=== PATIENT | female | born 1970 | race Caucasian/White ===

== ENCOUNTER 2017-04-27 16:35 | Emergency (ER) | payer MEDICAID, OTHER ==
[~2017-04-27] VITALS: Ht 182.9 cm; Wt 94.3 kg
[~2017-04-27 16:35] MED LIST: ACYC400T PO; CYCL5TAB PO; LEVO200T4 PO; LOSA100T PO; NAPR500T PO
[2017-04-27 16:37] VITALS: BP 159/98; PULSE 96; RESP 16; TEMP 98.8; O2SAT 98
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
[2017-04-27] MEDS ORDERED: BENZ100 PO (20:35)
[2017-04-27] MEDS ORDERED: NAPR500 PO (20:37)
[2017-04-27 21:07] VITALS: BP 146/88; TEMP 98.3
--- NOTE | 2017-04-27 22:19 | EKG ---
Date Performed: 04/27/2017 Time Performed: 20:06:14 PTAGE: 46 years EKG: Sinus rhythm T-WAVE ABNORMALITY, CONSIDER ANTERIOR ISCHEMIA ABNORMAL ECG PREVIOUS TRACING : 05/06/2015 02.41 Compared to previous tracing, heart rate has increased. DOCTOR: Desmond Ramos Interpretating Date/Time 04/27/2017 22:17:11
[2017-05-10] MEDS ORDERED: LEVO25TA4 PO (15:59)
[2017-05-10] MEDS ORDERED: HYDR1SOL20 PO (16:04)
== END 2017-04-27 21:08 | disposition home or self-care (01) ==
LOC: PHED 16:35 → PHEFT 21:08
DX: J00 Acute nasopharyngitis [common cold] (principal); I10 Essential (primary) hypertension; Z87.891 Personal history of nicotine dependence
CPT/HCPCS: 93005; 99283

== ENCOUNTER 2017-04-30 13:34 | Emergency (ER) | payer OTHER ==
[~2017-04-30] VITALS: Ht 167.6 cm; Wt 92.5 kg
[~2017-04-30 13:34] MED LIST changes: -ACYC400T PO; +BENZ100 PO; -CYCL5TAB PO; +NAPR500 PO; -NAPR500T PO
[2017-04-30 13:37] VITALS: BP 148/93; PULSE 99; RESP 24; TEMP 98.7; O2SAT 98
--- NOTE | 2017-04-30 14:18 | PD ---
Physical Exam Date Seen by Provider: Apr 30, 2017 Time Seen by Provider: 14:14 Narrative 46 yr old female had flu like symptoms, went to [facility] in [place] and was given some Tessalon perles and something for body aches. SHe is not getting better. She admits to fever and chills. SHe admits to coughing that is very dry but persistent. She admits to chest pain only when coughing. She also has pressure headache that "reaches her eyes." She also has body aches 04/25. She had sick family members. She is awaiting bed placement. Data Data Last Documented VS Vital Signs Date Time Temp Pulse Resp B/P Pulse Ox O2 Delivery O2 Flow Rate FiO2 04/30/17 13:37 98.7 99 24 148/93 98 Room Air [facility] Medical Record Reviewed: Yes Supervised Visit with LINDA: Laura Lang Apr 30, 2017 14:18
--- NOTE | 2017-04-30 14:57 | RADRPT ---
EXAM DATE/TIME: 04/30/2017 14:35 [facility] COMPARISON: CHEST SINGLE AP, May 05, 2015, 20:04. INDICATIONS : Cough and congestion. MEDICAL HISTORY : Hypertension. SURGICAL HISTORY : None. ENCOUNTER: Initial ACUITY: 3 days PAIN SCORE: 0/10 LOCATION: Bilateral chest FINDINGS: The lungs are clear without infiltrate, nodule, or mass. There is no appreciable pleural effusion fo r technique. Heart and mediastinum are unremarkable. CONCLUSION: No acute cardiopulmonary disease. Blake Scott MD on April 30, 2017 at 14:55 Board Certified Radiologist. This report was verified electronically.
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
[2017-04-30] MEDS ORDERED: VENTAER INH (15:27)
[2017-04-30] MEDS ORDERED: PRED50 PO (15:27)
[2017-04-30] MEDS ORDERED: AUGM875T3 PO (15:27)
[2017-05-10] MEDS ORDERED: LEVO25TA4 PO (15:59)
[2017-05-10] MEDS ORDERED: HYDR1SOL20 PO (16:04)
== END 2017-04-30 16:20 | disposition home or self-care (01) ==
LOC: NEPK 13:34
DX: J01.90 Acute sinusitis, unspecified (principal); J20.9 Acute bronchitis, unspecified
CPT/HCPCS: 71020; 99284

== ENCOUNTER 2017-05-15 12:39 | Emergency (ER) | payer OTHER ==
[~2017-05-15] VITALS: Ht 167.6 cm; Wt 86.5 kg
[~2017-05-15 12:39] MED LIST changes: +AUGM875T3 PO; +HYDR1SOL20 PO; +LEVO25TA4 PO; +PRED50 PO; +VENTAER INH
[2017-05-15 12:42] VITALS: BP 123/80; PULSE 95; RESP 18; TEMP 98.1; O2SAT 96
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
[2017-05-15] MEDS ORDERED: IBUPROFEN 800 MG TAB PO ONE (13:00)
[2017-05-15] MEDS ORDERED: IBUP-232 PO (13:05)
[2017-05-15] MEDS ORDERED: ROBA750T PO (13:05)
[2017-05-15 13:13] LABS: BLOOD, URINE LARGE (NEG); GLUCOSE,URINE NEG (NEG); KETONE, URINE NEG (NEG); NITRITE,URINE NEG (NEG)
[2017-05-15 13:18] LABS: METHOD OF COLLECTION CLEAN CATCH; URINE COLOR YELLOW (YELLW/STRAW); WBC, URINE 0-2 /hpf (0-5)
[2017-05-15 13:19] LABS: BACTERIA, URINE OCC /hpf; COMMENT (UR) CULT NOT INDICATED; CULTURE IF INDICATED CULT NOT INDICATED
--- NOTE | 2017-05-15 14:17 | RADRPT ---
EXAM DATE/TIME: 05/15/2017 13:51 CORRE[place] Corrected on: May 15, 2017; [facility] COMPARISON: CT ABDOMEN & PELVIS W/O CONTRAST, May 04, 2014, 13:00. CT ABDOMEN & PELVIS W/O CONTRAST, December 31, 2014, 23:00. INDICATIONS : Left lower flank pain radiating down left leg. ORAL CONTRAST: No oral contrast ingested. RADIATION DOSE: 23.55 CTDIvol (mGy) MEDICAL HISTORY : Hypertension. SURGICAL HISTORY : Tubal ligation. section. ENCOUNTER: Initial ACUITY: 1 day PAIN SCALE: 5/10 LOCATION: Left flank TECHNIQUE: Volumetric scanning of the abdomen and pelvis was performed. Using automated exposure control and ad justment of the mA and/or kV according to patient size, radiation dose was kept as low as reasonably achievable to obtain optimal diagnostic quality images. DICOM format image data is available electro nically for review and comparison. FINDINGS: LOWER LUNGS: The visualized lower lungs are clear. LIVER: The liver is enlarged and demonstrates diffuse fatty infiltration. No focal hepatic mass is noted. No biliary ductal dilatation is noted. The gallbladder is unremarkable. SPLEEN: Normal size without lesion. PANCREAS: Within normal limits. KIDNEYS: Normal in size and shape. There is no mass or hydronephrosis. Scattered tiny calcified nonobstructin g bilateral renal calculi are noted. The largest calculus is noted on the left and measures 3 mm. The re is a tiny stable 11 mm upper pole left renal cyst. ADRENAL GLANDS: Within normal limits. VASCULAR: There is no aortic aneurysm. BOWEL/MESENTERY: The stomach, small bowel, and colon demonstrate no acute abnormality. There is no free intraperitone al air or fluid. There is a normal retrocecal appendix. ABDOMINAL WALL: Within normal limits. RETROPERITONEUM: There is no lymphadenopathy. BLADDER: No wall thickening or mass. REPRODUCTIVE: Within normal limits. INGUINAL: There is no lymphadenopathy or hernia. MUSCULOSKELETAL: Within normal limits for patient age. CONCLUSION: 1. Multiple calcified nonobstructing bilateral renal calculi. 2. Enlarged fatty liver. 3. No acute obstructive uropathy. 4. Stable 11 mm left upper pole renal cyst. Jeremie Crystal MD on May 15, 2017 at 14:10 Board Certified Radiologist. This report was verified electronically. Jeremie Crystal MD on May 15, 2017 at 14:24 Board Certified Radiologist. This report was verified electronically.
== END 2017-05-15 14:29 | disposition home or self-care (01) ==
LOC: PHEFT 12:39
DX: M54.42 Lumbago with sciatica, left side (principal); I10 Essential (primary) hypertension; Z87.891 Personal history of nicotine dependence
CPT/HCPCS: 74176; 81001; 99285

== ENCOUNTER 2017-07-30 12:33 | Emergency (ER) | payer OTHER ==
[~2017-07-30 12:33] MED LIST changes: -AUGM875T3 PO; -BENZ100 PO; -HYDR1SOL20 PO; +IBUP-232 PO; -LEVO25TA4 PO; -NAPR500 PO; -PRED50 PO; +ROBA750T PO; -VENTAER INH
[2017-07-30 12:37] VITALS: BP 130/75; PULSE 84; RESP 18; TEMP 98.2; O2SAT 98
[2017-07-30] MEDS ORDERED: KETOROLAC TROMETHAMINE 60 MG/2 ML (IM) VIAL IM ONE (13:15)
[2017-07-30] MEDS ORDERED: ORPHENADRINE INJ 60 MG/2 ML AMP IM ONE (13:15)
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
[2017-07-30] MEDS ORDERED: CYCL5TAB PO (13:28)
[2017-08-09] MEDS ORDERED: MELO-1 PO (12:41)
[2017-08-09] MEDS ORDERED: CICL8SOL4 TOPICAL (12:45)
== END 2017-07-30 13:39 | disposition home or self-care (01) ==
LOC: PHEFT 12:33
DX: I10 Essential (primary) hypertension (principal); M54.31 Sciatica, right side
CPT/HCPCS: 96372; 99284; J1885; J2360

== ENCOUNTER 2017-08-03 17:51 | Emergency (ER) | payer OTHER ==
[~2017-08-03] VITALS: Ht 167.6 cm; Wt 96.2 kg
[~2017-08-03 17:51] MED LIST changes: +CYCL5TAB PO; -IBUP-232 PO; -ROBA750T PO
[2017-08-03 18:29] VITALS: BP 128/73; PULSE 81; RESP 16; TEMP 99.1; O2SAT 98
--- NOTE | 2017-08-03 22:57 | RADRPT ---
EXAM DATE/TIME: 08/03/2017 22:35 [facility] COMPARISON: No previous studies available for comparison. INDICATIONS : Lower back pain. No injury. RADIATION DOSE: 39.58 CTDIvol (mGy) MEDICAL HISTORY : Hypertension. SURGICAL HISTORY : None. ENCOUNTER: Subsequent ACUITY: 1 day PAIN SCALE: 6/10 LOCATION: spine TECHNIQUE: Volumetric scanning of the lumbar spine was performed. Multiplanar reconstructions in the sagittal, coronal and oblique axial planes were performed. Using automated exposure control and adjustment of the mA and/or kV according to patient size, radiation dose was kept as low as reasonably achievable t o obtain optimal diagnostic quality images. DICOM format image data is available electronically for review and comparison. FINDINGS: VERTEBRAE: Normal vertebral body height. ALIGNMENT: No evidence of subluxation. Vascular. Calcification in the aorta and iliac arteries consistent premature atherosclerosis. T12-L1: The thecal sac has a normal diameter. No evidence of disc bulge or protrusion. The neural foramina are patent bilaterally. L1-L2: The thecal sac has a normal diameter. No evidence of disc bulge or protrusion. The neural foramina are patent bilaterally. L2-L3: The thecal sac has a normal diameter. No evidence of disc bulge or protrusion. The neural foramina are patent bilaterally. L3-L4: The thecal sac has a normal diameter. No evidence of disc bulge or protrusion. The neural foramina are patent bilaterally. L4-L5: The thecal sac has a normal diameter. No evidence of disc bulge or protrusion. The neural foramina are patent bilaterally. L5-S1: The thecal sac has a normal diameter. No evidence of disc bulge or protrusion. The neural foramina are patent bilaterally. CONCLUSION: Normal negative examination lumbar spine. Premature atherosclerotic vascular calcifications i n aorta and iliac vessels. Rui Noyola MD on August 03, 2017 at 22:52 Board Certified Radiologist. This report was verified electronically.
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
[2017-08-03] MEDS ORDERED: KETOROLAC TROMETHAMINE 60 MG/2 ML (IM) VIAL IM ONE (23:15)
[2017-08-03 23:51] VITALS: BP 124/76
[2017-08-09] MEDS ORDERED: MELO-1 PO (12:41)
[2017-08-09] MEDS ORDERED: CICL8SOL4 TOPICAL (12:45)
== END 2017-08-03 23:53 | disposition home or self-care (01) ==
LOC: PHED 17:51 → PHEFT 23:53
DX: M54.41 Lumbago with sciatica, right side (principal)
CPT/HCPCS: 72131; 96372; 99285; J1885

== ENCOUNTER 2017-08-07 09:18 | Emergency (ER) | payer OTHER ==
[~2017-08-07] VITALS: Ht 167.6 cm; Wt 96.0 kg
[~2017-08-07 09:18] MED LIST changes: -CYCL5TAB PO
[2017-08-07 09:20] VITALS: BP 150/88; PULSE 63; RESP 18; TEMP 98.1; O2SAT 98
--- NOTE | 2017-08-07 09:44 | PD ---
HPI Chief Complaint: Back/ Neck Pain or Injury Time Seen by Provider: 09:26 Travel History International Travel<30 days: No Contact w/Intl Traveler<30days: No Traveled to known affect area: No History of Present Illness HPI 46-year-old female presents to the emergency room for evaluation of chronic right-sided low back pain. Patient has been seen in the emergency room multiple times for the same complaint. She was last seen 4 days ago and had a CT of her lumbar spine that was negative for any abnormality. Of note, patient had an MRI of her lumbar spine one year ago which only showed mild scoliosis. Patient states her pain was exacerbated yesterday because she had stand on her feet at work all day. Pain is localized to the right SI joint without radiation. Pain is worsened with any range of motion of the back. Not worse with range of motion of the hips. She takes Tylenol and Motrin without relief in symptoms. Denies saddle anesthesia, loss of bowel or bladder control , or lower x-ray paresthesias. Denies IV drug use, fever, chills, nausea, vomiting, or weight loss. Denies chronic medical conditions other than hypertension. History Past Medical Histgory Menopausal: Yes Hx Chemotherapy: No Social History Alcohol Use: No Tobacco Use: No (FORMER) Allergies-Medications (Allergen,Severity, Reaction): Coded Allergies: No Known Allergies (Unverified , 08/07/17) Reported Meds & Prescriptions Reported Meds & Active Scripts Active Losartan (Losartan Potassium) 100 Mg Tab 100 Mg PO DAILY Levothyroxine (Levothyroxine Sodium) 200 Mcg Tab 200 Mcg PO DAILY Review of Systems Except as stated in HPI: all other systems reviewed are Neg Physical Exam Narrative GENERAL: Well-nourished, well-developed female in no acute distress. Afebrile. Ambulatory without antalgic gait. SKIN: Focused skin assessment warm/dry. No erythema or ecchymosis. HEAD: Normocephalic. EYES: No scleral icterus. No injection or drainage. NECK: Supple, trachea midline. No JVD or lymphadenopathy. CARDIOVASCULAR: Regular rate and rhythm without murmurs, gallops, or rubs. RESPIRATORY: Breath sounds equal bilaterally. No accessory muscle use. BACK: No midline tenderness. No obvious deformity. No CVA tenderness. Mild tenderness to palpation of the right SI joint. 1+ patellar and Achilles reflexes are equal bilaterally. Data Data Last Documented VS Vital Signs Date Time Temp Pulse Resp B/P (MAP) Pulse Ox O2 Delivery O2 Flow Rate FiO2 08/07/17 09:20 98.1 63 18 150/88 (108) 98 Room Air MDM Medical Screen Exam Complete: Yes Emergency Medical Condition: No Differential Diagnosis Chronic low back pain Narrative Course 46-year-old female presents to the emergency room for evaluation of chronic right-sided low back pain. Patient has been seen in the emergency room multiple times for the same complaint. She was last seen 4 days ago and had a CT of her lumbar spine that was negative for any abnormality. Of note, patient had an MRI of her lumbar spine one year ago which only showed mild scoliosis. She is ambulatory. No focal neurological deficits. No midline tenderness. No red flag symptoms. Patient was informed that she needs to follow up with her primary care physician for management of her chronic back pain. Told to return for concerning signs or symptoms. She understands and agrees to plan. There are no urgent or emergent medical conditions at this time. A medical screening exam was performed: At the time of evaluation the presenting medical condition was determined not to be of an emergent nature. The patient was given the option of receiving additional care, such as prescription for muscle relaxers, but declined. Patient was given options for additional community resources from which to obtain care. The Patient Has Been advised to seek medical attention for their presenting complaint. The patient has been advised to return to the ER at any time if an emergent condition develops. Primary Impression: Encounter for medical screening examination Disposition: 01 DISCHARGE HOME Condition: Stable Lisha Asif Aug 07, 2017 09:44
[2017-08-09] MEDS ORDERED: MELO-1 PO (12:41)
[2017-08-09] MEDS ORDERED: CICL8SOL4 TOPICAL (12:45)
== END 2017-08-07 10:17 | disposition left against medical advice (07) ==
LOC: NEPK 09:18
DX: Z00.00 Encounter for general adult medical examination without abnormal findings (principal); M54.5 Low back pain
CPT/HCPCS: 99281

== ENCOUNTER 2017-10-27 14:22 | Emergency (ER) | payer OTHER ==
[~2017-10-27] VITALS: Ht 167.6 cm; Wt 100.0 kg
[~2017-10-27 14:22] MED LIST changes: +CICL8SOL4 TOPICAL; +MELO15TA20 PO
[2017-10-27 15:01] VITALS: BP 143/87; PULSE 111; RESP 16; TEMP 98.9; O2SAT 98
[2017-10-27 16:17] LABS: BILIRUBIN, URINE NEG (NEG); BLOOD, URINE LARGE (NEG); GLUCOSE,URINE NEG (NEG); KETONE, URINE NEG (NEG); NITRITE,URINE NEG (NEG); URINE LEUKOCYTE ESTERASE NEG (NEG)
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
[2017-10-27] MEDS ORDERED: KETOROLAC TROMETHAMINE 60 MG/2 ML (IM) VIAL IM ONE (16:45)
[2017-10-27 16:51] LABS: RBC, URINE 0-3 /hpf (0-3); SQUAMOUS EPITHELIAL CELL URINE 0-5 /hpf (0-5); URINE COLOR YELLOW (YELLW/STRAW)
--- NOTE | 2017-10-27 18:12 | RADRPT ---
EXAM DATE/TIME: 10/27/2017 17:45 [facility] COMPARISON: CT ABDOMEN & PELVIS W/O CONTRAST, May 15, 2017, 13:51. INDICATIONS : Right flank pain. ORAL CONTRAST: No oral contrast ingested. RADIATION DOSE: 24.83 CTDIvol (mGy) MEDICAL HISTORY : Renal calculi. Hypertension. SURGICAL HISTORY : Tubal ligation. section. ENCOUNTER: Initial ACUITY: 3 days PAIN SCALE: 7/10 LOCATION: Right flank TECHNIQUE: Volumetric scanning of the abdomen and pelvis was performed. Using automated exposure control and ad justment of the mA and/or kV according to patient size, radiation dose was kept as low as reasonably achievable to obtain optimal diagnostic quality images. DICOM format image data is available electro nically for review and comparison. FINDINGS: There is a 2 mm nonobstructing stone of the right mid zone, 3 mm nonobstructing stone of the right lo wer pole, 3 mm nonobstructing stone of the left mid zone and 2 mm nonobstructing stone of the left lo wer pole. There is increased density of the medullary pyramids of both kidneys typical of calcinosis. No ureteral calculus is demonstrated. There is no hydronephrosis or hydroureter. Liver is at least 20 cm craniocaudal. Heterogeneous fatty infiltration again noted, similar to the pr ior study. Spleen size upper limits of normal. No obstruction or acute inflammatory changes are seen of the gastrointestinal tract. The appendix is well-visualized, normal. No free or loculated fluid. No lymphadenopathy. Visualized lung bases are clear. No acute bony abnorm ality demonstrated. CONCLUSION: 1. A few scattered tiny nonobstructing stones in both kidneys. No ureteral calculus or hydronephrosis /hydroureter. 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 2. Enlarged and fatty infiltrated liver again noted. Guille Morales MD on October 27, 2017 at 18:07 Board Certified Radiologist. This report was verified electronically.
[2017-10-27] MEDS ORDERED: AMOX875T PO (18:19)
[2017-10-27 18:41] VITALS: BP 139/80
[2017-10-28] MEDS ORDERED: MELO15TA20 PO (20:07)
[2017-11-07] MEDS ORDERED: CLOT1CRE6 TOPICAL (14:21)
[2017-11-07] MEDS ORDERED: [UNRECOGNIZED DRUG - CODE] (14:21)
[2017-11-07] MEDS ORDERED: LEVO200T4 PO (14:21)
[2017-11-07] MEDS ORDERED: PERC5TAB12 PO (14:23)
[2017-11-07] MEDS ORDERED: TAMS5CAP PO (14:28)
== END 2017-10-27 18:42 | disposition home or self-care (01) ==
LOC: PHEFT 14:22
DX: J02.0 Streptococcal pharyngitis (principal); N25.89 Other disorders resulting from impaired renal tubular function; N20.0 Calculus of kidney; E07.9 Disorder of thyroid, unspecified; I10 Essential (primary) hypertension; Z87.891 Personal history of nicotine dependence
CPT/HCPCS: 74176; 81001; 87804; 87880; 96372; 99285; J1885

== ENCOUNTER 2017-11-15 17:27 | Emergency (ER) | payer OTHER ==
[~2017-11-15] VITALS: Ht 167.6 cm; Wt 100.0 kg
[~2017-11-15 17:27] MED LIST changes: +AMOX875T PO; -CICL8SOL4 TOPICAL; +CLOT1CRE6 TOPICAL; +PERC5TAB12 PO; +TAMS5CAP PO; +[UNRECOGNIZED DRUG - CODE]
[2017-11-15 17:40] VITALS: BP 153/90; PULSE 91; RESP 16; TEMP 98.2; O2SAT 98
[2017-11-15 17:52] LABS: BILIRUBIN, URINE NEG (NEG); BLOOD, URINE LARGE (NEG); GLUCOSE,URINE NEG (NEG); KETONE, URINE NEG (NEG); NITRITE,URINE POS (NEG); PH, URINE 6.5 (5.0-8.5); URINE LEUKOCYTE ESTERASE MOD (NEG)
[2017-11-15 18:06] LABS: URINE COLOR YELLOW (YELLW/STRAW); WBC, URINE INNUM /hpf (0-5)
[2017-11-15 18:07] LABS: BACTERIA, URINE MOD /hpf
[2017-11-15] MEDS ORDERED: TRAM50TA PO (18:55)
[2017-11-15] MEDS ORDERED: CIPR-9 PO (18:55)
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
== END 2017-11-15 19:17 | disposition home or self-care (01) ==
LOC: PHED 17:27 → PHEFT 19:17
DX: N12 Tubulo-interstitial nephritis, not specified as acute or chronic (principal); B96.20 Unspecified Escherichia coli [E. coli] as the cause of diseases classified elsewhere; I10 Essential (primary) hypertension; Z87.442 Personal history of urinary calculi
CPT/HCPCS: 81001; 87077; 87086; 87186; 99284

== ENCOUNTER 2017-11-17 16:39 | Inpatient (IN) | payer OTHER ==
[~2017-11-17] VITALS: Ht 167.6 cm; Wt 102.5 kg
[2017-11-17] MEDS: SODIUM CHLOR 0.9% 1000 ML INJ 1,000 ML IV SCH
[~2017-11-17 16:39] MED LIST changes: -AMOX875T PO; +CIPR-9 PO; -CLOT1CRE6 TOPICAL; -MELO15TA20 PO; -PERC5TAB12 PO; -TAMS5CAP PO; +TRAM50TA PO; -[UNRECOGNIZED DRUG - CODE]
[2017-11-17 16:43] VITALS: BP 139/75; PULSE 105; RESP 18; TEMP 100.4; O2SAT 95
--- NOTE | 2017-11-17 17:42 | RADRPT ---
EXAM DATE/TIME: 11/17/2017 17:24 [facility] COMPARISON: CHEST PA & LAT, April 30, 2017, 14:35. INDICATIONS : Chest pain. MEDICAL HISTORY : None. SURGICAL HISTORY : None. ENCOUNTER: Initial ACUITY: 4 - 6 days PAIN SCORE: 9/10 LOCATION: Bilateral chest FINDINGS: PA and lateral views of the chest demonstrate the lungs to be symmetrically aerated without evidence of mass, infiltrate or effusion. The cardiomediastinal contours are unremarkable. Osseous structure s are intact. CONCLUSION: No acute disease. Robb Zambrano Jr., MD on November 17, 2017 at 17:39 Board Certified Radiologist. This report was verified electronically.
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
[2017-11-17 18:23] VITALS: BP 122/71; PULSE 110; RESP 17; TEMP 99.1; O2SAT 96
[2017-11-17 18:26] LABS: AUTOMATED NEUTROPHIL # 13.2 TH/MM3 (1.8-7.7); BASOPHIL % 0.2 % (0.0-2.0); EOSINOPHIL % 0.1 % (0.0-4.0); HEMATOCRIT 37.8 % (35.0-46.0); HEMOGLOBIN 12.6 GM/DL (11.6-15.3); LYMPH % 6.6 % (9.0-44.0); MEAN CELL VOLUME 90.5 FL (80.0-100.0); MEAN CORPUSCULAR HEMOGLOBIN 30.2 PG (27.0-34.0); MEAN CORPUSCULAR HGB CONC 33.4 % (32.0-36.0); MEAN PLATELET VOLUME 10.9 FL (7.0-11.0); MONOCYTE # 0.6 TH/MM3 (0-0.9); NEUT % 89.1 % (16.0-70.0); PLATELET COUNT 179 TH/MM3 (150-450); RED BLOOD COUNT 4.17 MIL/MM3 (4.00-5.30); WHITE BLOOD COUNT 14.8 TH/MM3 (4.0-11.0)
--- NOTE | 2017-11-17 18:36 | RADRPT ---
EXAM DATE/TIME: 11/17/2017 18:07 [facility] COMPARISON: CT ABDOMEN & PELVIS W/O CONTRAST, October 27, 2017, 17:45. INDICATIONS : Right lower quadrant pain, burning with urination. ORAL CONTRAST: No oral contrast ingested. RADIATION DOSE: 13.88 CTDIvol (mGy) MEDICAL HISTORY : Renal calculi. Hypertension. SURGICAL HISTORY : Tubal ligation. section. ENCOUNTER: Initial ACUITY: 1 day PAIN SCALE: 5/10 LOCATION: Right lower quadrant TECHNIQUE: Volumetric scanning of the abdomen and pelvis was performed. Using automated exposure control and ad justment of the mA and/or kV according to patient size, radiation dose was kept as low as reasonably achievable to obtain optimal diagnostic quality images. DICOM format image data is available electro nically for review and comparison. FINDINGS: Perinephric streakiness is noted surrounding the right kidney. There is mild ureteral pelvocaliectasi s on the right. No definite calcified obstructing calculus is noted within the right distal ureter bu t the findings suggest obstructive uropathy which may be related to recently passed calculus. Clinica l correlation recommended. Tiny calcified nonobstructing bilateral renal calculi are noted and measur e less than 5 mm each. The liver is enlarged and demonstrates diffuse fatty infiltration. The appendi x is normal. No bowel obstruction is noted. Minimal atelectasis is noted within the right posterior l constantine base. CONCLUSION: 1. Perinephric streakiness and mild ureteropelvicatelectasis on the right suggestive of obstructive u ropathy which may be related to recently passed calculus. Clinical correlation is recommended. 2. Multiple calcified nonobstructing bilateral renal calculi. 3. Enlarged fatty liver. 4. Minimal right posterior basilar atelectasis. Jeremie Crystal MD on November 17, 2017 at 18:28 Board Certified Radiologist. This report was verified electronically.
[2017-11-17 19:10] LABS: BICARBONATE 24.2 MEQ/L (21.0-32.0); BLOOD UREA NITROGEN 21 MG/DL (7-18); CALCIUM 8.8 MG/DL (8.5-10.1); CHLORIDE 97 MEQ/L (98-107); CREATININE 1.54 MG/DL (0.50-1.00); GLOMERULAR FILTRATION RATE 36 ML/MIN (>89); GLUCOSE,RANDOM 252 MG/DL (74-106); SODIUM (NA) 128 MEQ/L (136-145); TROPONIN I LESS THAN 0.02 NG/ML (0.02-0.05)
[2017-11-17 19:24] LABS: ALBUMIN 2.9 GM/DL (3.4-5.0); ALT (GPT) 72 U/L (10-53); AST (GOT) 42 U/L (15-37); DIRECT BILIRUBIN ADULT 0.3 MG/DL (0.0-0.2)
[2017-11-17 19:25] LABS: ALKALINE PHOSPHATASE 105 U/L (45-117); INDIRECT BILIRUBIN 0.9 MG/DL (0.0-0.8); TOTAL BILIRUBIN ADULT 1.2 MG/DL (0.2-1.0); TOTAL PROTEIN 8.7 GM/DL (6.4-8.2)
[2017-11-17 20:01] LABS: AMORPHOUS SEDIMENT, URINE RARE; BACTERIA, URINE OCC /hpf; BILIRUBIN, URINE NEG (NEG); BLOOD, URINE LARGE (NEG); GLUCOSE,URINE NEG (NEG); KETONE, URINE NEG (NEG); MUCUS URINE FEW /lpf (OCC); NITRITE,URINE NEG (NEG); PH, URINE 7.5 (5.0-8.5); SQUAMOUS EPITHELIAL CELL URINE 4 /hpf (0-5); URINE COLOR YELLOW (YELLW/STRAW); URINE LEUKOCYTE ESTERASE LARGE (NEG)
[2017-11-17] MEDS ORDERED: KETOROLAC TROMETHAMINE 30 MG/ML (IVP) VIAL IV PUSH ONE (20:15)
[2017-11-17] MEDS ORDERED: ONDANSETRON HCL 4 MG/2 ML VIAL IV PUSH ONE (20:15)
[2017-11-17] MEDS ORDERED: cefTRIAXone INJ 1,000 MG in SODIUM CHLORIDE 0.9% INJ 100 ML IV ONE (20:15)
[2017-11-17] MEDS ORDERED: SODIUM CHLOR 0.9% 1000 ML INJ 1,000 ML IV ONE (20:15)
--- NOTE | 2017-11-17 20:31 | PD ---
Physical Exam Narrative Patient signed out to me by Dr. Fall. Please see his documentation for complete details. Briefly, patient is a 47 year old female who complains of flank pain radiating into her pelvic area. She also has started to have some chest pain. She was seen here a few days ago and diagnosed with pyelonephritis and discharged on cipro. She reports taking this medication with no improvement. Exam shows CVA tenderness. Data Data Last Documented VS Vital Signs Date Time Temp Pulse Resp B/P (MAP) Pulse Ox O2 Delivery O2 Flow Rate FiO2 11/17/17 18:23 99.1 110 17 122/71 (88) 96 Room Air Orders Orders Electrocardiogram (11/17/17 17:01) Complete Blood Count With Diff (11/17/17 17:01) Basic Metabolic Panel (Bmp) (11/17/17 17:01) Ckmb (Isoenzyme) Profile (11/17/17 17:01) Troponin I (11/17/17 17:01) Urinalysis - C+S If Indicated (11/17/17 17:01) Chest, Pa & Lat (11/17/17 17:01) Ct Abd/Pel W/O Iv Contrast (11/17/17 17:41) Hepatic Functional Panel (11/17/17 17:57) Lipase (11/17/17 17:57) Urine Culture (11/17/17 19:15) Ceftriaxone Inj (Rocephin Inj) (11/17/17 20:15) Sodium Chlor 0.9% 1000 Ml Inj (Ns 1000 M (11/17/17 20:15) Ketorolac Inj (Toradol Inj) (11/17/17 20:15) Ondansetron Inj (Zofran Inj) (11/17/17 20:15) Labs Laboratory Tests Test 11/17/17 17:57 11/17/17 19:15 White Blood Count 14.8 TH/MM3 Red Blood Count 4.17 MIL/MM3 Hemoglobin 12.6 GM/DL Hematocrit 37.8 % Mean Corpuscular Volume 90.5 FL Mean Corpuscular Hemoglobin 30.2 PG Mean Corpuscular Hemoglobin Concent 33.4 % Red Cell Distribution Width 15.0 % Platelet Count 179 TH/MM3 Mean Platelet Volume 10.9 FL Neutrophils (%) (Auto) 89.1 % Lymphocytes (%) (Auto) 6.6 % Monocytes (%) (Auto) 4.0 % Eosinophils (%) (Auto) 0.1 % Basophils (%) (Auto) 0.2 % Neutrophils # (Auto) 13.2 TH/MM3 Lymphocytes # (Auto) 1.0 TH/MM3 Monocytes # (Auto) 0.6 TH/MM3 Eosinophils # (Auto) 0.0 TH/MM3 Basophils # (Auto) 0.0 TH/MM3 CBC Comment DIFF FINAL Differential Comment Blood Urea Nitrogen 21 MG/DL Creatinine 1.54 MG/DL Random Glucose 252 MG/DL Total Protein 8.7 GM/DL Albumin 2.9 GM/DL Calcium Level 8.8 MG/DL Alkaline Phosphatase 105 U/L Aspartate Amino Transf (AST/SGOT) 42 U/L Alanine Aminotransferase (ALT/SGPT) 72 U/L Total Bilirubin 1.2 MG/DL Direct Bilirubin 0.3 MG/DL Sodium Level 128 MEQ/L Potassium Level 4.4 MEQ/L Chloride Level 97 MEQ/L Carbon Dioxide Level 24.2 MEQ/L Anion Gap 7 MEQ/L Estimat Glomerular Filtration Rate 36 ML/MIN Indirect Bilirubin 0.9 MG/DL Total Creatine Kinase 50 U/L Troponin I LESS THAN 0.02 NG/ML Lipase 71 U/L Urine Color YELLOW Urine Turbidity HAZY Urine pH 7.5 Urine Specific [place] 1.012 Urine Protein 100 mg/dL Urine Glucose (UA) NEG mg/dL Urine Ketones NEG mg/dL Urine Occult Blood LARGE Urine Nitrite NEG Urine Bilirubin NEG Urine Urobilinogen LESS THAN 2.0 MG/DL Urine Leukocyte Esterase LARGE Urine RBC 16 /hpf Urine WBC /hpf Urine Squamous Epithelial Cells 4 /hpf Urine Amorphous Sediment RARE Urine Bacteria OCC /hpf Urine Mucus FEW /lpf Microscopic Urinalysis Comment CULTURE INDICATED MDM Supervised Visit with LINDA: No Narrative Course CT abd/pelvis performed shows possible recent passage of a stone as well as perinephric stranding. Labs concerning for elevated WBC count. Urine culture shows urine grew E. Coli sensitive to Cipro (which she was taking ) as well as Rocephin. Given IVF, Rocephin, Toradol, Zofran. Patient to be admitted for pyelonephritis, failed out patient therapy as well as repeat cardiac enzymes with the new chest pain. Diagnosis Primary Impression: Pyelonephritis Admitting Information Admitting Physician Requests: Admit Buffy Jaramillo MD Nov 17, 2017 20:31
[2017-11-17 21:00] VITALS: BP 107/54; PULSE 100; PULSE 69; RESP 16; O2SAT 97
[2017-11-17] MEDS ORDERED: ENOXAPARIN SODIUM 40 MG/0.4 ML SYRINGE SQ SCH (22:00)
[2017-11-17] MEDS ORDERED: BISACODYL 10 MG SUPP RECTAL PRN (22:15)
[2017-11-17] MEDS ORDERED: SODIUM CHLORIDE 0.9% FLUSH 10 ML FLUSH IV FLUSH PRN (22:15)
[2017-11-17] MEDS ORDERED: MAGNESIUM HYDROXIDE SUSP 30 ML CUP PO PRN (22:15)
[2017-11-17] MEDS ORDERED: NALOXONE HCL 0.4 MG/ML AMP IV PUSH PRN (22:15)
[2017-11-17] MEDS ORDERED: DEXTROSE 50% IN WATER 50 ML VIAL(D50) IV PUSH PRN (22:30)
[2017-11-17] MEDS ORDERED: GLUCAGON 1 MG/ML VIAL OTHER PRN (22:30)
[2017-11-17] MEDS: MORPHINE SULFATE 4 MG/ML INJ IV PUSH PRN (22:40)
[2017-11-17] MEDS: ONDANSETRON HCL 4 MG/2 ML VIAL IVP PRN (22:40)
[2017-11-17 23:57] VITALS: PULSE 107
[2017-11-18] VITALS (8 sets, daily range): BP systolic 93–167; BP diastolic 52–96; PULSE 84–140; RESP 18–24; TEMP 97.9–102.7; O2SAT 93–97
--- NOTE | 2017-11-18 00:02 | HHI.HP ---
[facility] Dejan Ulloa MD Admission Diagnosis Chest pain, pyelonephritis (failed outpatient treatment) Diagnoses: Travel History International Travel<30 Days: No Contact w/Intl Traveler <30 Da: No Traveled to Known Affected Are: No History of Present Illness 47-year-old female with a past medical history significant for hypothyroidism and hypertension presents to the emergency department complaining of chest pain/ pressure that started yesterday afternoon. She describes the pain as substernal and worse with palpation. It does not radiate. The patient also has severe 10/10 right flank pain that radiates to the right pelvis. She was seen in the emergency department on 11/15/17 diagnosed with a urinary tract infection, given Cipro and Toradol. Vital signs: Temperature 100.4, pulse 105, respirations 18, BP 139/75, pulse ox 95% on room air Review of Systems Except as stated in HPI: all other systems reviewed are Neg Past Family Social History Past Medical History Hypothyroidism Hypertension Past Surgical History Reported Medications Reported Meds & Active Scripts Active Levothyroxine (Levothyroxine Sodium) 200 Mcg Tab 200 Mcg PO DAILY Losartan (Losartan Potassium) 100 Mg Tab 100 Mg PO DAILY Allergies: Coded Allergies: No Known Allergies (Unverified Adverse Reaction, Unknown, 11/15/17) Family History Mother with diabetes and coronary artery disease Social History Denies alcohol, tobacco and illicit drugs Physical Exam Vital Signs Vital Signs Date Time Temp Pulse Resp B/P (MAP) Pulse Ox O2 Delivery O2 Flow Rate FiO2 11/17/17 23:30 11/17/17 21:00 100 16 107/54 (71) 97 Room Air 11/17/17 18:23 99.1 110 17 122/71 (88) 96 Room Air 11/17/17 16:43 100.4 105 18 139/75 (96) 95 Physical Exam GENERAL: Female sitting up in bed SKIN: No rashes, ecchymoses or lesions. Cool and dry. HEAD: Atraumatic. Normocephalic. No temporal or scalp tenderness. EYES: Pupils equal round and reactive. Extraocular motions intact. No scleral icterus. No injection or drainage. ENT: Nose without bleeding, purulent drainage or septal hematoma. Throat without erythema, tonsillar hypertrophy or exudate. Uvula midline. Airway patent. NECK: Trachea midline. No JVD or lymphadenopathy. Supple, nontender, no meningeal signs. CARDIOVASCULAR: Regular rate and rhythm without murmurs, gallops, or rubs. RESPIRATORY: Clear to auscultation. Breath sounds equal bilaterally. No wheezes , rales, or rhonchi. GASTROINTESTINAL: Abdomen soft, non-tender, nondistended. No hepato-splenomegaly , or palpable masses. No guarding. : Markedly right CVA tenderness MUSCULOSKELETAL: Extremities without clubbing, cyanosis, or edema. No joint tenderness, effusion, or edema noted. No calf tenderness. NEUROLOGICAL: Awake and alert. Cranial nerves II through XII intact. Motor and sensory grossly within normal limits. Normal speech. Laboratory Laboratory Tests Test 11/17/17 17:57 11/17/17 19:15 White Blood Count 14.8 Red Blood Count 4.17 Hemoglobin 12.6 Hematocrit 37.8 Mean Corpuscular Volume 90.5 Mean Corpuscular Hemoglobin 30.2 Mean Corpuscular Hemoglobin Concent 33.4 Red Cell Distribution Width 15.0 Platelet Count 179 Mean Platelet Volume 10.9 Neutrophils (%) (Auto) 89.1 Lymphocytes (%) (Auto) 6.6 Monocytes (%) (Auto) 4.0 Eosinophils (%) (Auto) 0.1 Basophils (%) (Auto) 0.2 Neutrophils # (Auto) 13.2 Lymphocytes # (Auto) 1.0 Monocytes # (Auto) 0.6 Eosinophils # (Auto) 0.0 Basophils # (Auto) 0.0 CBC Comment DIFF FINAL Differential Comment Blood Urea Nitrogen 21 Creatinine 1.54 Random Glucose 252 Total Protein 8.7 Albumin 2.9 Calcium Level 8.8 Alkaline Phosphatase 105 Aspartate Amino Transf (AST/SGOT) 42 Alanine Aminotransferase (ALT/SGPT) 72 Total Bilirubin 1.2 Direct Bilirubin 0.3 Sodium Level 128 Potassium Level 4.4 Chloride Level 97 Carbon Dioxide Level 24.2 Anion Gap 7 Estimat Glomerular Filtration Rate 36 Indirect Bilirubin 0.9 Total Creatine Kinase 50 Troponin I LESS THAN 0.02 Lipase 71 Urine Color YELLOW Urine Turbidity HAZY Urine pH 7.5 Urine Specific [place] 1.012 Urine Protein 100 Urine Glucose (UA) NEG Urine Ketones NEG Urine Occult Blood LARGE Urine Nitrite NEG Urine Bilirubin NEG Urine Urobilinogen LESS THAN 2.0 Urine Leukocyte Esterase LARGE Urine RBC 16 Urine WBC Urine Squamous Epithelial Cells 4 Urine Amorphous Sediment RARE Urine Bacteria OCC Urine Mucus FEW Microscopic Urinalysis Comment CULTURE INDICATED Date/Time Source Procedure Growth Status 11/17/17 19:15 Urine Clean Catch Urine Culture Pending Received Result Diagram: 11/17/17175611/[id number]/171756 Caprini VTE Risk Assessment Caprini VTE Risk Assessment: No/Low Risk (score <= 1) Caprini Risk Assessment Model Point Value = 1 Point Value = 2 Point Value = 3 Point Value = 5 Age 41-60 Minor surgery BMI > 25 kg/m2 Swollen legs Varicose veins or History of unexplained or recurrent spontaneous Oral contraceptives or hormone replacement Sepsis (< 1 month) Serious lung disease, including pneumonia (< 1 month) Abnormal pulmonary function Acute myocardial infarction Congestive heart failure (< 1 month) History of inflammatory bowel disease Medical patient at bed rest Age 61-74 Arthroscopic surgery Major open surgery (> 45 min) Laparoscopic surgery (> 45 min) Malignancy Confined to bed (> 72 hours) Immobilizing plaster cast Central venous access Age >= 75 History of VTE Family history of VTE Factor V Leiden Prothrombin [id number] Lupus anticoagulant Anticardiolipin antibodies Elevated serum homocysteine Heparin-induced thrombocytopenia Other congenital or acquired thrombophilia Stroke (< 1 month) Elective arthroplasty Hip, pelvis, or leg fracture Acute spinal cord injury (< 1 month) Prophylaxis Regimen Total Risk Factor Score Risk Level Prophylaxis Regimen 0-1 Low Early ambulation 2 Moderate Order ONE of the following: *Sequential Compression Device (SCD) *Heparin 5000 units SQ BID 3-4 Higher Order ONE of the following medications: *Heparin 5000 units SQ TID *Enoxaparin/Lovenox 40 mg SQ daily (WT < 150 kg, CrCl > 30 mL/min) *Enoxaparin/Lovenox 30 mg SQ daily (WT < 150 kg, CrCl > 10-29 mL/min) *Enoxaparin/Lovenox 30 mg SQ BID (WT < 150 kg, CrCl > 30 mL/min) AND/OR *Sequential Compression Device (SCD) 5 or more Highest Order ONE of the following medications: *Heparin 5000 units SQ TID (Preferred with Epidurals) *Enoxaparin/Lovenox 40 mg SQ daily (WT < 150 kg, CrCl > 30 mL/min) *Enoxaparin/Lovenox 30 mg SQ daily (WT < 150 kg, CrCl > 10-29 mL/min) *Enoxaparin/Lovenox 30 mg SQ BID (WT < 150 kg, CrCl > 30 mL/min) AND *Sequential Compression Device (SCD) Assessment and Plan Assessment and Plan Assessment/plan: 1. Pyelonephritis/sepsis Patient febrile, with leukocytosis and tachycardia Lactic acid pending CT of the abdomen/pelvis significant for perinephric streakiness and mild ear no pelvic atelectasis on the right suggestive of obstructive uropathy, possibly recently passed stone Blood/urine cultures pending Urine culture from 11/15 showed Escherichia coli resistant to Rocephin Rocephin IV fluid hydration 2. Chest pain/pressure Initial troponin negative EKG significant for sinus tachycardia without ST segment elevations or depressions, personally reviewed Morphine for pain ACS rule out pending; serial troponin/EKGs 3. TAY Creatinine 1.54, baseline 0.81 May be secondary to obstructive uropathy from possible stone Monitor renal function 4. Hypertension/hypothyroidism Continue home medication FEN Heart healthy diet Electrolytes: monitor and replete prn SCDs Physician Certification 2 Midnight Certification Type: Admission for Inpatient Services Order for Inpatient Services The services are ordered in accordance with Medicare regulations or non- Medicare payer requirements, as applicable. In the case of services not specified as inpatient-only, they are appropriately provided as inpatient services in accordance with the 2-midnight benchmark. Estimated LOS (days): 2 2 days is the estimated time the patient will need to remain in the hospital, assuming treatment plan goals are met and no additional complications. Post-Hospital Plan: Not yet determined Shannon Girard MD Nov 18, 2017 00:02
[2017-11-18 02:26] LABS: TROPONIN I LESS THAN 0.02 NG/ML (0.02-0.05)
[2017-11-18] MEDS: ONDANSETRON HCL 4 MG/2 ML VIAL IVP PRN ×2 (04:41→12:36)
[2017-11-18] MEDS: MORPHINE SULFATE 4 MG/ML INJ IV PUSH PRN (04:41)
[2017-11-18] MEDS: ACETAMINOPHEN 325 MG TAB PO PRN ×2 (04:42→09:18)
[2017-11-18] MEDS: LEVOTHYROXINE SODIUM 200 MCG TAB PO SCH (05:34)
[2017-11-18 07:18] LABS: AUTOMATED NEUTROPHIL # 8.2 TH/MM3 (1.8-7.7); BASOPHIL % 0.1 % (0.0-2.0); EOSINOPHIL % 0.2 % (0.0-4.0); HEMATOCRIT 35.1 % (35.0-46.0); HEMOGLOBIN 11.7 GM/DL (11.6-15.3); LYMPH % 6.8 % (9.0-44.0); LYMPHOCYTE # 0.6 TH/MM3 (1.0-4.8); MEAN CORPUSCULAR HEMOGLOBIN 30.1 PG (27.0-34.0); MEAN CORPUSCULAR HGB CONC 33.4 % (32.0-36.0); MEAN PLATELET VOLUME 10.9 FL (7.0-11.0); MONO % 4.6 % (0.0-8.0); MONOCYTE # 0.4 TH/MM3 (0-0.9); NEUT % 88.3 % (16.0-70.0); PLATELET COUNT 135 TH/MM3 (150-450); RED CELL DISTRIBUTION WIDTH 14.7 % (11.6-17.2); WHITE BLOOD COUNT 9.3 TH/MM3 (4.0-11.0)
[2017-11-18 07:42] LABS: ALBUMIN 2.5 GM/DL (3.4-5.0); AST (GOT) 28 U/L (15-37); BICARBONATE 23.5 MEQ/L (21.0-32.0); BLOOD UREA NITROGEN 21 MG/DL (7-18); CALCIUM 8.4 MG/DL (8.5-10.1); CHLORIDE 99 MEQ/L (98-107); CREATININE 1.29 MG/DL (0.50-1.00); GLOMERULAR FILTRATION RATE 44 ML/MIN (>89); GLUCOSE,RANDOM 188 MG/DL (74-106); SODIUM (NA) 132 MEQ/L (136-145)
[2017-11-18 07:43] LABS: ALT (GPT) 53 U/L (10-53)
[2017-11-18 07:47] LABS: ALKALINE PHOSPHATASE 114 U/L (45-117); TOTAL BILIRUBIN ADULT 0.8 MG/DL (0.2-1.0); TOTAL PROTEIN 7.9 GM/DL (6.4-8.2); TROPONIN I LESS THAN 0.02 NG/ML (0.02-0.05)
[2017-11-18] MEDS: SODIUM CHLORIDE 0.9% FLUSH 10 ML FLUSH IV FLUSH SCH ×2 (09:00→21:00)
[2017-11-18] MEDS: INSULIN ASPART SUPPLEMENTAL SCALE SQ SCH ×4 (09:11→21:00)
[2017-11-18] MEDS: LOSARTAN 50 MG TAB PO SCH (09:12)
[2017-11-18] MEDS ORDERED: ACETAMINOPHEN/HYDROcodone 325 MG/5 MG TAB PO PRN (10:00)
[2017-11-18 10:06] LABS: HEPATITIS A AB IGM NEGATIVE (NEGATIVE); HEPATITIS B CORE AB IGM NEGATIVE (NEGATIVE); HEPATITIS B SURFACE ANTIGEN NEGATIVE (NEGATIVE); HEPATITIS C AB IgG NEGATIVE (NEGATIVE)
--- NOTE | 2017-11-18 10:06 | HHI.FPPN ---
Subjective Remarks Mrs. Styles is a very pleasant 47-year-old female, with a past medical history significant for recurrent kidney stones, essential hypertension, and hypothyroidism, who presented to the emergency department on 11/17/2017, with increasing right flank pain. Pain was a 10 out of 10 at its worse, and during hospitalization it is about 5 out of 10. She denies any blood in her urine. In addition to the right flank pain, she was febrile to 102.7, tachycardic to 140 bpm, and meeting sepsis criteria. She also reported a sharp, stabbing, central chest pain, not related to exertion. She reports that it is reproducible to touch/palpation. She denies any radiation into the jaw or arm. She denies any associated shortness of breath. She has not been coughing recently, and denies any sick contacts. She also denies any acid reflux symptoms, or association with meals. (Johan Coombs MD, R3) Objective Vitals Vital Signs Date Time Temp Pulse Resp B/P (MAP) Pulse Ox O2 Delivery O2 Flow Rate FiO2 11/18/17 08:00 97.9 100 18 97/52 (67) 94 11/18/17 04:58 102.7 140 24 167/96 (119) 95 11/18/17 04:04 Room Air 11/18/17 04:00 111 11/18/17 01:36 Room Air 11/18/17 00:30 98.9 106 20 103/57 (72) 93 11/17/17 23:57 107 11/17/17 23:30 11/17/17 21:00 100 16 107/54 (71) 97 Room Air 11/17/17 18:23 99.1 110 17 122/71 (88) 96 Room Air 11/17/17 16:43 100.4 105 18 139/75 (96) 95 I/O 11/17/17 11/17/17 11/17/17 11/18/17 11/18/17 11/18/17 07:00 15:00 23:00 07:00 15:00 23:00 Intake Total 1100 ml 680 ml Balance 1100 ml 680 ml Intake Oral 80 ml IV Total 1100 ml 600 ml # Voids 1 (Johan Coombs MD, R3) Result Diagram: 11/18/17 0555 11/18/17 0555 Imaging Last 72 hours Impressions Abdomen/Pelvis CT 11/17/17 1741 Signed Impressions: Service Date/Time: November 18:07 - CONCLUSION: 1. Perinephric streakiness and mild ureteropelvicatelectasis on the right suggestive of obstructive uropathy which may be related to recently passed calculus. Clinical correlation is recommended. 2. Multiple calcified nonobstructing bilateral renal calculi. 3. Enlarged fatty liver. 4. Minimal right posterior basilar atelectasis. Jeremie Crystal MD Chest X-Ray 11/17/17 1701 Signed Impressions: Service Date/Time: November 17:24 - CONCLUSION: No acute disease. Robb Zambrano Jr., MD Objective Remarks GENERAL: Patient appears slightly diaphoretic, appears to be in pain, nontoxic. Alert and oriented to person and place. SKIN: Warm and dry. No rash. EYES: No scleral icterus. No injection or drainage. PERRLA. EOMI. HENT: Normocephalic. Atraumatic. MMM. NECK: No visible JVD or lymphadenopathy. CARDIOVASCULAR: Warm and well perfused. Tachycardia to 100 bpm, no murmurs appreciated. Regular rate. RESPIRATORY: Normal respiratory effort. Faint crackles at the right base. GASTROINTESTINAL: Abdomen nondistended. CVA tenderness on the right side. MUSCULOSKELETAL: Strength grossly WNL. BACK: Without obvious deformity. NEURO/PSYCH: Afocal. Awake, alert, and oriented x3. (Johan Coombs MD, R3) A/P Assessment and Plan Mrs. Styles is a very pleasant 47-year-old female, with past medical history significant for essential hypertension, recurrent kidney stones, and hypothyroidism. She was admitted to the hospital meeting sepsis criteria, with a likely source being her urogenital tract. A CT scan done on admission showed perinephric streakiness and mild ureteropelvic atelectasis on the right, suggestive of obstructive uropathy. There were also multiple calcified nonobstructing bilateral renal calculi. Discharge Planning Pending clinical improvement. (Johan Coombs MD, R3) Attending Attestation THIS CASE WAS DISCUSSED WITH THE RESIDENT PHYSICIANS.PATIENT WAS SEEN AND EXAMINED WITH RESIDENT DR Shea COOMBS. I HAVE REVIEWED THE RECORD AND AGREE WITH THE ABOVE NOTE AND PLAN OF CARE WAS DISCUSSED. I HAVE AUTHORIZED THE ORDERs (Gabriel Collier MD) Problem List: (1) Pyelonephritis ICD Codes: N12 - Tubulo-interstitial nephritis, not specified as acute or chronic Status: Acute Plan: She meeting sepsis criteria on admission. Urine culture from 11/15/2017, showed Escherichia coli, sensitive to ciprofloxacin. Repeat cultures pending. UA on admission showed large leukocyte esterase, 16 RBCs, occasional bacteria, and negative nitrates. PLAN: Recieved 1 L bolus NS in ED. Will repeat given hypotension this AM. Aggressive IV fluid rehydration ~1.5 x maintenance. Pain control with Lortab 5-325 mg q 6 hours PRN pain 1/5, Lortab 10-325 pain 6- 10, Morphine IV 4 mg for breakthrough q 3 hours. Received 1 dose of ceftriaxone at 20:42, on 11/17/2017. Transition to IV ciprofloxacin 400 mg q 12, given sensitivities. Will follow. Consults Urology given significant history of recurrent kidney stones and likely infected calculi in the right kidney. Appreciate their assistance. May need lithotripsy in the hospital or as an outpatient. (2) Chest pain, atypical ICD Codes: R07.89 - Chest pain, atypical Status: Acute Plan: Troponins negative 3. Nuclear stress test performed on 05/06/2015 showed no signs of ischemia. Likely musculoskeletal given reproducibility on palpation. CXR normal on admission. (3) Hypertension ICD Codes: I10 - Essential (primary) hypertension Status: Acute Plan: Continue with home losartan 100 mg daily. Patient with hypotension today in AM at 0800. Hold parameters in place. (4) Hypothyroidism ICD Codes: E03.9 - Hypothyroidism, unspecified Status: Acute Plan: Cont home levothyroxine. (5) TAY (acute kidney injury) ICD Codes: N17.9 - Acute kidney failure, unspecified Plan: CR/BUN 1.54/36 on admission --> 1.29/21. Improving with IVF. Continue fluids as above. Avoid nephrotoxic agents. Monitor I&Os. Continue to monitor BMP. (6) Nutrition, metabolism, and development symptoms ICD Codes: R63.8 - Other symptoms and signs concerning food and fluid intake Plan: Diet: Reg diet Fluids: Above GI ppx: not indicated DVT ppx: Lovenox [address] Collier. (Johan Coombs MD, R3) Johan Coombs MD, R3 Nov 18, 2017 10:06 Gabriel Collier MD Nov 18, 2017 13:42
[2017-11-18] MEDS ORDERED: SODIUM CHLOR 0.9% 1000 ML INJ 1,000 ML IV ONE (11:00)
[2017-11-18] MEDS: SODIUM CHLOR 0.9% 1000 ML INJ 1,000 ML IV SCH ×2 (11:36→18:49)
[2017-11-18] MEDS: CIPROFLOXACIN 400 MG PREMIX 200 ML IV SCH ×2 (11:37→21:52)
[2017-11-18] MEDS ORDERED: cefTRIAXone INJ 1,000 MG in SODIUM CHLORIDE 0.9% INJ 100 ML IV SCH (21:00)
[2017-11-18] MEDS: ACETAMINOPHEN/HYDROcodone 325 MG/10 MG TAB PO PRN (21:48)
[2017-11-19] VITALS (10 sets, daily range): BP systolic 107–126; BP diastolic 60–63; PULSE 63–95; RESP 16–20; TEMP 98.2–102; O2SAT 94–97
[2017-11-19] MEDS: SODIUM CHLOR 0.9% 1000 ML INJ 1,000 ML IV SCH ×4 (02:21→17:36)
[2017-11-19] MEDS: ACETAMINOPHEN 325 MG TAB PO PRN (03:54)
[2017-11-19] MEDS: LEVOTHYROXINE SODIUM 200 MCG TAB PO SCH (05:52)
[2017-11-19] MEDS: INSULIN ASPART SUPPLEMENTAL SCALE SQ SCH ×4 (08:00→21:00)
[2017-11-19] MEDS: SODIUM CHLORIDE 0.9% FLUSH 10 ML FLUSH IV FLUSH SCH ×2 (08:47→21:00)
[2017-11-19] MEDS: LOSARTAN 50 MG TAB PO SCH (08:51)
[2017-11-19] MEDS: CIPROFLOXACIN 400 MG PREMIX 200 ML IV SCH (08:51)
[2017-11-19 09:38] LABS: BASOPHIL % 0.3 % (0.0-2.0); EOSINOPHIL % 0.3 % (0.0-4.0); HEMATOCRIT 31.9 % (35.0-46.0); HEMOGLOBIN 10.5 GM/DL (11.6-15.3); LYMPHOCYTE # 0.6 TH/MM3 (1.0-4.8); MEAN CELL VOLUME 90.6 FL (80.0-100.0); MEAN CORPUSCULAR HEMOGLOBIN 29.9 PG (27.0-34.0); MEAN CORPUSCULAR HGB CONC 33.1 % (32.0-36.0); MEAN PLATELET VOLUME 10.9 FL (7.0-11.0); MONO % 6.9 % (0.0-8.0); MONOCYTE # 0.4 TH/MM3 (0-0.9); NEUT % 82.5 % (16.0-70.0); PLATELET COUNT 113 TH/MM3 (150-450); RED BLOOD COUNT 3.52 MIL/MM3 (4.00-5.30)
[2017-11-19 10:15] LABS: ALBUMIN 2.1 GM/DL (3.4-5.0); ALT (GPT) 39 U/L (10-53); AST (GOT) 23 U/L (15-37); BICARBONATE 23.4 MEQ/L (21.0-32.0); BLOOD UREA NITROGEN 17 MG/DL (7-18); CHLORIDE 106 MEQ/L (98-107); CREATININE 1.11 MG/DL (0.50-1.00); GLOMERULAR FILTRATION RATE 53 ML/MIN (>89); GLUCOSE,RANDOM 132 MG/DL (74-106); SODIUM (NA) 136 MEQ/L (136-145)
[2017-11-19 10:18] LABS: ALKALINE PHOSPHATASE 86 U/L (45-117); TOTAL BILIRUBIN ADULT 0.5 MG/DL (0.2-1.0)
[2017-11-19] MEDS ORDERED: ACETAMIN 325 MG/BUTALBITAL 50 MG/CAFFEINE 40 MG TAB PO ONE (10:30)
[2017-11-19] MEDS ORDERED: HYDROmorphone HCL PF 1 MG/ML VIAL IV PUSH PRN ×2 (10:30→12:30)
--- NOTE | 2017-11-19 10:30 | HHI.FPPN ---
Subjective Remarks Patient is not feeling well this morning. She continues to have severe right- sided back pain that radiates to her abdomen and has epigastric abdominal pain. Per patient's nurse, she had a fever up to 102F overnight which resolved with Tylenol and her last temp around 8 AM this morning was 99.8F. She also complains of nausea when she tried to eat and throbbing headache. She would like to take a shower if possible. She has not had a bowel movement since admission. Objective Vitals Vital Signs Date Time Temp Pulse Resp B/P (MAP) Pulse Ox O2 Delivery O2 Flow Rate FiO2 11/19/17 08:00 99.8 84 16 117/61 (79) 94 11/19/17 05:50 99.2 11/19/17 04:00 102.0 89 20 126/63 (84) 96 11/19/17 03:46 95 11/19/17 00:00 Room Air 11/19/17 00:00 98.9 90 20 113/60 (77) 95 11/18/17 23:41 84 11/18/17 21:52 Room Air 11/18/17 20:00 100.6 102 20 106/55 (72) 95 11/18/17 16:00 98.6 97 18 93/52 (66) 97 11/18/17 16:00 102 11/18/17 12:00 97.9 89 20 98/61 (73) 94 11/18/17 12:00 84 I/O 11/18/17 11/18/17 11/18/17 11/19/17 11/19/17 11/19/17 07:00 15:00 23:00 07:00 15:00 23:00 Intake Total 680 ml 1200 ml 3880 ml 2516 ml Output Total 1150 ml Balance 680 ml 1200 ml 3880 ml 1366 ml Intake Oral 80 ml 480 ml 950 ml IV Total 600 ml 1200 ml 3400 ml 1566 ml Output Urine Total 1150 ml # Voids 1 # Bowel Movements 0 Result Diagram: 11/19/17 0738 11/19/17 0658 Objective Remarks GENERAL: Patient appears uncomfortable, but is nontoxic. SKIN: Warm and dry. No rash. EYES: No scleral icterus. No injection or drainage. PERRLA. EOMI. HENT: Normocephalic. Atraumatic. MMM. CARDIOVASCULAR: Warm and well perfused. Regular rate and rhythm RESPIRATORY: Normal respiratory effort. Faint crackles at the right base. GASTROINTESTINAL: Abdomen nondistended, tender to palpation over epigastric area. CVA tenderness on the right side. MUSCULOSKELETAL: Strength grossly WNL. BACK: Without obvious deformity. NEURO/PSYCH: Afocal. Awake, alert, and oriented x3. A/P Assessment and Plan Mrs. Styles is a very pleasant 47-year-old female, with past medical history significant for essential hypertension, recurrent kidney stones, and hypothyroidism. She was admitted to the hospital meeting sepsis criteria, with a likely source being her urogenital tract. A CT scan done on admission showed perinephric streakiness and mild ureteropelvic atelectasis on the right, suggestive of obstructive uropathy. There were also multiple calcified nonobstructing bilateral renal calculi. Discharge Planning Pending clinical improvement. Problem List: (1) Pyelonephritis ICD Codes: N12 - Tubulo-interstitial nephritis, not specified as acute or chronic Status: Acute Plan: Patient met sepsis criteria on admission. Blood cultures ordered on 2017. Urine culture from 11/15/2017, showed Escherichia coli, sensitive to ciprofloxacin. Repeat cultures growing Escherichia coli sensitive to ciprofloxacin and Rocephin UA on admission showed large leukocyte esterase, 16 RBCs, occasional bacteria, and negative nitrates. PLAN: Continue aggressive IV fluid rehydration ~1.5 x maintenance. Pain control with Lortab 5-325 mg q 6 hours PRN pain 1/5, Lortab 10-325 pain 6- 10, Dilaudid 0.5 mg IV for breakthrough q 3 hours. Received 1 dose of ceftriaxone at 20:42, on 11/17/2017. Transition to IV ciprofloxacin 400 mg q 12, given sensitivities. Will follow. Consult Urology given significant history of recurrent kidney stones and likely infected calculi in the right kidney. Appreciate their assistance. May need lithotripsy in the hospital or as an outpatient. (2) Chest pain, atypical ICD Codes: R07.89 - Chest pain, atypical Status: Resolved Plan: Resolved. No chest pain today Troponins negative 3. Nuclear stress test performed on 05/06/2015 showed no signs of ischemia. Likely musculoskeletal given reproducibility on palpation. CXR normal on admission. (3) Hypertension ICD Codes: I10 - Essential (primary) hypertension Status: Acute Plan: Continue with home losartan 100 mg daily. Hold parameters in place. (4) Hypothyroidism ICD Codes: E03.9 - Hypothyroidism, unspecified Status: Acute Plan: Cont home levothyroxine. (5) TAY (acute kidney injury) ICD Codes: N17.9 - Acute kidney failure, unspecified Plan: CR/BUN 1.54/36 on admission --> 1.29/21 -->1.11/17. Improving with IVF. Continue fluids as above. Avoid nephrotoxic agents. Monitor I&Os. Continue to monitor BMP. (6) Nutrition, metabolism, and development symptoms ICD Codes: R63.8 - Other symptoms and signs concerning food and fluid intake Plan: Diet: Reg diet Fluids: Above GI ppx: not indicated DVT ppx: Lovenox 40 mg daily Will discuss with Dr. Amira Rogers,Janay Khan MD R2 Nov 19, 2017 10:30
[2017-11-19] MEDS: ACETAMINOPHEN/HYDROcodone 325 MG/10 MG TAB PO PRN ×2 (14:46→21:27)
[2017-11-19] MEDS: LACTULOSE SYRUP 20 GM/30 ML CUP PO PRN (15:57)
[2017-11-19] MEDS: SENNOSIDES 8.6 MG TAB PO PRN (15:57)
[2017-11-19] MEDS: cefTRIAXone INJ 1,000 MG in SODIUM CHLORIDE 0.9% INJ 100 ML IV SCH (17:36)
[2017-11-20] VITALS (10 sets, daily range): BP systolic 109–145; BP diastolic 57–88; PULSE 69–98; RESP 18–20; TEMP 97.8–102.8; O2SAT 95–98
[2017-11-20] MEDS: SODIUM CHLOR 0.9% 1000 ML INJ 1,000 ML IV SCH ×6 (04:38→20:56)
[2017-11-20] MEDS: ACETAMINOPHEN/HYDROcodone 325 MG/10 MG TAB PO PRN ×3 (05:04→20:51)
[2017-11-20] MEDS: LEVOTHYROXINE SODIUM 200 MCG TAB PO SCH (05:04)
[2017-11-20] MEDS: ACETAMINOPHEN 325 MG TAB PO PRN ×2 (05:04→20:55)
[2017-11-20 05:42] LABS: HEMATOCRIT 31.8 % (35.0-46.0); HEMOGLOBIN 10.8 GM/DL (11.6-15.3); MEAN CORPUSCULAR HEMOGLOBIN 30.2 PG (27.0-34.0); MEAN CORPUSCULAR HGB CONC 33.9 % (32.0-36.0); MEAN PLATELET VOLUME 10.2 FL (7.0-11.0); PLATELET COUNT 135 TH/MM3 (150-450); RED BLOOD COUNT 3.57 MIL/MM3 (4.00-5.30); RED CELL DISTRIBUTION WIDTH 15.3 % (11.6-17.2); WHITE BLOOD COUNT 4.9 TH/MM3 (4.0-11.0)
[2017-11-20 05:51] LABS: ALBUMIN 2.1 GM/DL (3.4-5.0); ALT (GPT) 43 U/L (10-53); AST (GOT) 54 U/L (15-37); BICARBONATE 20.3 MEQ/L (21.0-32.0); BLOOD UREA NITROGEN 12 MG/DL (7-18); CALCIUM 7.7 MG/DL (8.5-10.1); CHLORIDE 107 MEQ/L (98-107); CREATININE 0.95 MG/DL (0.50-1.00); GLOMERULAR FILTRATION RATE 63 ML/MIN (>89); GLUCOSE,RANDOM 134 MG/DL (74-106); SODIUM (NA) 136 MEQ/L (136-145)
[2017-11-20 05:54] LABS: ALKALINE PHOSPHATASE 96 U/L (45-117); TOTAL BILIRUBIN ADULT 0.5 MG/DL (0.2-1.0); TOTAL PROTEIN 7.4 GM/DL (6.4-8.2)
[2017-11-20] MEDS: INSULIN ASPART SUPPLEMENTAL SCALE SQ SCH ×4 (08:00→20:55)
[2017-11-20] MEDS: LOSARTAN 50 MG TAB PO SCH (08:41)
[2017-11-20] MEDS: SENNOSIDES 8.6 MG TAB PO PRN (08:41)
[2017-11-20] MEDS: SODIUM CHLORIDE 0.9% FLUSH 10 ML FLUSH IV FLUSH SCH ×2 (08:42→20:54)
--- NOTE | 2017-11-20 09:25 | HHI.FPPN ---
Subjective Remarks Patient states that she feels 15% better in terms of her back pain, headache, and abdominal pain. She no longer has chest pain. She has not vomited but feels very uncomfortable eating because she has not had a bowel movement in days. She continues to have fevers and has developed heat sores on her lips. Objective Vitals Vital Signs Date Time Temp Pulse Resp B/P (MAP) Pulse Ox O2 Delivery O2 Flow Rate FiO2 11/20/17 08:00 99.1 84 18 109/57 (74) 95 11/20/17 06:24 100.6 11/20/17 06:24 17 11/20/17 04:06 98 11/20/17 04:00 102.8 93 19 141/73 (95) 96 11/20/17 00:00 100.0 82 19 110/60 (77) 95 11/20/17 00:00 87 11/19/17 21:25 Room Air 11/19/17 20:03 73 11/19/17 20:00 98.5 77 19 111/63 (79) 97 11/19/17 17:51 73 11/19/17 16:00 98.2 75 18 107/60 (76) 95 11/19/17 15:31 20 11/19/17 15:21 94 Room Air 11/19/17 12:00 76 11/19/17 12:00 99.3 79 18 107/62 (77) 94 I/O 11/19/17 11/19/17 11/19/17 11/20/17 11/20/17 11/20/17 07:00 15:00 23:00 07:00 15:00 23:00 Intake Total 2516 ml 1200 ml 580 ml 889 ml Output Total 1150 ml 800 ml 600 ml Balance 1366 ml 1200 ml -220 ml 289 ml Intake Oral 950 ml 480 ml IV Total 1566 ml 1200 ml 100 ml 889 ml Output Urine Total 1150 ml 800 ml 600 ml # Bowel Movements 0 0 Result Diagram: 11/20/17 0503 11/20/17 0503 Objective Remarks GENERAL: Patient appears uncomfortable but seems improved from the previous day SKIN: Warm and dry. No rash. EYES: No scleral icterus. No injection or drainage. PERRLA. EOMI. HENT: Normocephalic. Atraumatic. MMM. CARDIOVASCULAR: Warm and well perfused. Regular rate and rhythm RESPIRATORY: Normal respiratory effort but coughs with inspiration. Faint crackles at the right base. GASTROINTESTINAL: Abdomen nondistended but patient states is bigger than usual, tender to palpation over epigastric area with light guarding. CVA tenderness on the right side. MUSCULOSKELETAL: Strength grossly WNL. BACK: Without obvious deformity. NEURO/PSYCH: Afocal. Awake, alert, and oriented x3. A/P Assessment and Plan Mrs. Styles is a very pleasant 47-year-old female, with past medical history significant for essential hypertension, recurrent kidney stones, and hypothyroidism. She was admitted to the hospital meeting sepsis criteria, with a likely source being her urogenital tract. A CT scan done on admission showed perinephric streakiness and mild ureteropelvic atelectasis on the right, suggestive of obstructive uropathy. There were also multiple calcified nonobstructing bilateral renal calculi. Urology was consulted to assist with management. Discharge Planning Pending clinical improvement. Problem List: (1) Pyelonephritis ICD Codes: N12 - Tubulo-interstitial nephritis, not specified as acute or chronic Status: Acute Plan: Patient met sepsis criteria on admission. Blood cultures ordered on 11/19/2017 are pending Urine culture from 11/15/2017, showed Escherichia coli, sensitive to Rocephin and ciprofloxacin. Repeat cultures growing Escherichia coli sensitive to ciprofloxacin and Rocephin UA on admission showed large leukocyte esterase, 16 RBCs, occasional bacteria, and negative nitrates. PLAN: Continue aggressive IV fluid rehydration ~1.5 x maintenance. Pain control with Lortab 5-325 mg q 6 hours PRN pain 1/5, Lortab 10-325 pain 6- 10, Dilaudid 0.5 mg IV for breakthrough q 3 hours. Pain is better controlled Switched back to Rocephin IV on 11/19/17 Consult Urology given significant history of recurrent kidney stones and likely infected calculi in the right kidney. Appreciate their assistance. May need lithotripsy in the hospital or as an outpatient. (2) Hypertension ICD Codes: I10 - Essential (primary) hypertension Status: Acute Plan: Continue with home losartan 100 mg daily. Hold parameters in place. (3) Hypothyroidism ICD Codes: E03.9 - Hypothyroidism, unspecified Status: Acute Plan: Cont home levothyroxine. (4) TAY (acute kidney injury) ICD Codes: N17.9 - Acute kidney failure, unspecified Status: Resolved Plan: CR/BUN 1.54/36 on admission --> 1.29/21 -->1.11/17 -->0.95 on /4 Continue fluids as above. Avoid nephrotoxic agents. Monitor I&Os. Continue to monitor BMP. (5) Constipation ICD Codes: K59.00 - Constipation, unspecified Plan: -No bowel movements since admission -On constipation regimen - escalate as needed -Add prune juice to meals (6) Nutrition, metabolism, and development symptoms ICD Codes: R63.8 - Other symptoms and signs concerning food and fluid intake Plan: Diet: Reg diet Fluids: Above GI ppx: not indicated DVT ppx: Lovenox 40 mg daily OOB TID Respiratory incentive spirometer q1h to prevent pneumonia/atelectasis Duonebs prn for bronchospasm Fioricet prn for headaches PT to assist with strengthening exercises Discussed with Janay Dooley MD R2 Nov 20, 2017 9:25 am
[2017-11-20] MEDS ORDERED: RESP: ALBUTEROL 2.5 MG/IPRATROPIUM 0.5 MG NEB (PRN) NEB (10:15)
[2017-11-20] MEDS: ACETAMIN 325 MG/BUTALBITAL 50 MG/CAFFEINE 40 MG TAB PO PRN ×2 (11:44→20:51)
--- NOTE | 2017-11-20 14:26 | PD.CONS ---
HPI Service Urology Consult Requested By Reason for Consult Nephrolithiasis, Pyelonephritis Primary Care Physician Dejan Ulloa MD Diagnosis: History of Present Illness 47yo female with history of multiple kidney stones seen in consultation for suspected recent stone passage and pyelonephritis. Patient reports she began to develop right flank pain several days ago that was severe and radiating to the right groin. Since admit her pain has improved. She underwent CT scan which identified some residual hydronephrosis on the right, however no stone located within the right collecting system, indicating likely recent stone passage. She has very small bilateral renal stones remaining. Currently doing well, no fevers. No N/V. Initially admitted with elevated WBC and Cr. These have improved. Review of Systems ROS Limitations: Clinical Condition Constitutional: DENIES: Fever Endocrine: DENIES: Abnorml menstrual pattern Eyes: DENIES: Blurred vision Ears, nose, mouth, throat: DENIES: Hearing loss Respiratory: DENIES: Cough Cardiovascular: DENIES: Chest pain Gastrointestinal: DENIES: Abdominal pain Genitourinary: DENIES: Urinary frequency Musculoskeletal: DENIES: Back pain Neurologic: DENIES: Headache Psychiatric: DENIES: Anxiety Except as stated in HPI: all other systems reviewed are Neg Past Family Social History Past Medical History Hypothyroidism Hypertension Past Surgical History Reported Medications Reported Meds & Active Scripts Active Levothyroxine (Levothyroxine Sodium) 200 Mcg Tab 200 Mcg PO DAILY Losartan (Losartan Potassium) 100 Mg Tab 100 Mg PO DAILY Allergies: Coded Allergies: No Known Allergies (Unverified Adverse Reaction, Unknown, 11/15/17) Active Ordered Medications Current Medications Medications (Trade) Dose Ordered Sig/Tom Route Start Time Stop Time Status Last Admin Sodium Chloride 1,000 ml @ 160 mls/hr Q6H15M IV 11/17/17 22:15 11/20/17 08:43 (NS Flush) 2 ml UNSCH PRN IV FLUSH 11/17/17 22:15 (NS Flush) 2 ml BID IV FLUSH 11/18/17 09:00 (Tylenol) 650 mg Q4H PRN PO 11/17/17 22:15 11/20/17 05:04 (Zofran Inj) 4 mg Q6H PRN IVP 11/17/17 22:15 11/18/17 12:36 (Narcan Inj) 0.4 mg UNSCH PRN IV PUSH 11/17/17 22:15 (Milk Of Magnesia Liq) 30 ml Q12H PRN PO 11/17/17 22:15 (Senokot) 17.2 mg Q12H PRN PO 11/17/17 22:15 11/20/17 08:41 (Dulcolax Supp) 10 mg DAILY PRN RECTAL 11/17/17 22:15 (Lactulose Liq) 30 ml DAILY PRN PO 11/17/17 22:15 11/19/17 15:57 (D50w (Vial) Inj) 50 ml UNSCH PRN IV PUSH 11/17/17 22:30 (Glucagon Inj) 1 mg UNSCH PRN OTHER 11/17/17 22:30 (NovoLOG SUPPLEMENTAL SCALE) 1 ACHS SLIDING SCALE SQ 11/18/17 08:00 11/19/17 17:37 (Synthroid) 200 mcg DAILY@0600 PO 11/18/17 06:00 11/20/17 05:04 (Cozaar) 100 mg DAILY PO 11/18/17 09:00 11/20/17 08:41 (Ward 5-325 Mg) 1 tab Q4H PRN PO 11/18/17 10:00 11/18/17 17:37 (Ward 10-325 Mg) 1 tab Q4H PRN PO 11/18/17 10:00 11/20/17 09:07 (Dilaudid Pf Inj) 0.5 mg Q3H PRN IV PUSH 11/19/17 12:30 Ceftriaxone Sodium 1000 mg/ Sodium Chloride 100 ml @ 200 mls/hr Q24H IV 11/19/17 16:00 11/19/17 17:36 (Fioricet 325-50-40) 1 tab Q6H PRN PO 11/20/17 10:00 11/20/17 11:44 (Duoneb Neb) 1 ampule Q6HR WHILE AWAKE NEB PRN NEB 11/20/17 10:15 Family History Mother with diabetes and coronary artery disease Social History Denies alcohol, tobacco and illicit drugs Physical Exam Vital Signs Date Time Temp Pulse Resp B/P (MAP) Pulse Ox O2 Delivery O2 Flow Rate FiO2 11/20/17 08:00 99.1 84 18 109/57 (74) 95 11/20/17 06:24 100.6 11/20/17 06:24 17 2/4/18 04:06 98 11/20/17 04:00 102.8 93 19 141/73 (95) 96 11/20/17 00:00 100.0 82 19 110/60 (77) 95 11/20/17 00:00 87 11/19/17 21:25 Room Air 11/19/17 20:03 73 11/19/17 20:00 98.5 77 19 111/63 (79) 97 11/19/17 17:51 73 11/19/17 16:00 98.2 75 18 107/60 (76) 95 11/19/17 15:31 20 11/19/17 15:21 94 Room Air Physical Exam GENERAL: This is a well-nourished, well-developed patient, in no apparent distress. SKIN: No rashes, ecchymoses or lesions. Cool and dry. HEAD: Atraumatic. Normocephalic; Some scarring noted perioral EYES: Extraocular motions intact. No scleral icterus. No injection or drainage. ENT: Nose without bleeding, purulent drainage. Airway patent. NECK: Trachea midline. No JVD or lymphadenopathy CARDIOVASCULAR: Normal pulses RESPIRATORY: nonlabored. GASTROINTESTINAL: Abdomen soft, non-tender, nondistended MUSCULOSKELETAL: Extremities without clubbing, cyanosis, or edema.. NEUROLOGICAL: Awake and alert. Motor and sensory grossly within normal limits. Normal speech. Lab results reviewed: Yes Laboratory Tests Test 11/20/17 05:03 White Blood Count 4.9 Red Blood Count 3.57 Hemoglobin 10.8 Hematocrit 31.8 Mean Corpuscular Volume 89.0 Mean Corpuscular Hemoglobin 30.2 Mean Corpuscular Hemoglobin Concent 33.9 Red Cell Distribution Width 15.3 Platelet Count 135 Mean Platelet Volume 10.2 Blood Urea Nitrogen 12 Creatinine 0.95 Random Glucose 134 Total Protein 7.4 Albumin 2.1 Calcium Level 7.7 Alkaline Phosphatase 96 Aspartate Amino Transf (AST/SGOT) 54 Alanine Aminotransferase (ALT/SGPT) 43 Total Bilirubin 0.5 Sodium Level 136 Potassium Level 4.0 Chloride Level 107 Carbon Dioxide Level 20.3 Anion Gap 9 Estimat Glomerular Filtration Rate 63 Date/Time Source Procedure Growth Status 11/19/17 12:41 Blood Peripheral Aerobic Blood Culture - Preliminary NO GROWTH IN 1 DAY Resulted 11/19/17 12:41 Blood Peripheral Anaerobic Blood Culture - Preliminary NO GROWTH IN 1 DAY Resulted 11/17/17 19:15 Urine Clean Catch Urine Culture - Final Escherichia Coli Complete Result Diagram: 11/20/17 0503 11/20/17 0503 Personally reviewed images: Yes Imaging Last Impressions Abdomen/Pelvis CT 11/17/17 1741 Signed Impressions: Service Date/Time: November 18:07 - CONCLUSION: 1. Perinephric streakiness and mild ureteropelvicatelectasis on the right suggestive of obstructive uropathy which may be related to recently passed calculus. Clinical correlation is recommended. 2. Multiple calcified nonobstructing bilateral renal calculi. 3. Enlarged fatty liver. 4. Minimal right posterior basilar atelectasis. Jeremie Crystal MD Chest X-Ray 11/17/17 1701 Signed Impressions: Service Date/Time: November 17:24 - CONCLUSION: No acute disease. Robb Zambrano Jr., MD Assessment and Plan Problem List: (1) Pyelonephritis ICD Code: N12 - Tubulo-interstitial nephritis, not specified as acute or chronic Status: Acute (2) TAY (acute kidney injury) ICD Code: N17.9 - Acute kidney failure, unspecified Status: Resolved Assessment and Plan -Images identify no obstructing urolithiasis. Bilateral renal stones noted. Likely recently passed stone -No urological intervention indicated at this time. -Continue Abx for UTI -Patient to follow-up with Urology in clinic for further management regarding her nephrolithiasis -Please call with questions It is important to note that this consult was placed on 11/18/17, however I was never notified until today. 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 Therefore I recommend future consults to be directly called in physician-to- physician so no consults are missed and discussion may be had with providers to more efficiently care for the patients. Silas Vogel MD Nov 20, 2017 14:26
[2017-11-20] MEDS: cefTRIAXone INJ 1,000 MG in SODIUM CHLORIDE 0.9% INJ 100 ML IV SCH (16:27)
[2017-11-21] VITALS: BP 125/70; PULSE 65; PULSE 68; RESP 22; TEMP 97.9; O2SAT 95
[2017-11-21 04:00] VITALS: BP 128/75; PULSE 61; PULSE 66; RESP 20; TEMP 97.8; O2SAT 97
[2017-11-21] MEDS: ACETAMIN 325 MG/BUTALBITAL 50 MG/CAFFEINE 40 MG TAB PO PRN (05:16)
[2017-11-21] MEDS: LEVOTHYROXINE SODIUM 200 MCG TAB PO SCH (05:16)
[2017-11-21] MEDS: ACETAMINOPHEN/HYDROcodone 325 MG/10 MG TAB PO PRN (05:16)
[2017-11-21] MEDS: SODIUM CHLOR 0.9% 1000 ML INJ 1,000 ML IV SCH (05:17)
[2017-11-21] MEDS: LACTULOSE SYRUP 20 GM/30 ML CUP PO PRN (05:21)
[2017-11-21 05:54] LABS: HEMATOCRIT 36.2 % (35.0-46.0); HEMOGLOBIN 12.1 GM/DL (11.6-15.3); MEAN CELL VOLUME 90.1 FL (80.0-100.0); MEAN CORPUSCULAR HEMOGLOBIN 30.1 PG (27.0-34.0); MEAN CORPUSCULAR HGB CONC 33.5 % (32.0-36.0); MEAN PLATELET VOLUME 9.5 FL (7.0-11.0); PLATELET COUNT 189 TH/MM3 (150-450); RED BLOOD COUNT 4.02 MIL/MM3 (4.00-5.30); RED CELL DISTRIBUTION WIDTH 15.7 % (11.6-17.2); WHITE BLOOD COUNT 5.3 TH/MM3 (4.0-11.0)
[2017-11-21 06:12] LABS: ALBUMIN 2.3 GM/DL (3.4-5.0); AST (GOT) 59 U/L (15-37); BLOOD UREA NITROGEN 12 MG/DL (7-18); CALCIUM 8.5 MG/DL (8.5-10.1); CHLORIDE 106 MEQ/L (98-107); CREATININE 0.96 MG/DL (0.50-1.00); GLOMERULAR FILTRATION RATE 62 ML/MIN (>89); GLUCOSE,RANDOM 95 MG/DL (74-106); SODIUM (NA) 137 MEQ/L (136-145)
[2017-11-21 06:13] LABS: ALT (GPT) 47 U/L (10-53)
[2017-11-21 06:16] LABS: ALKALINE PHOSPHATASE 102 U/L (45-117); TOTAL BILIRUBIN ADULT 0.5 MG/DL (0.2-1.0); TOTAL PROTEIN 8.3 GM/DL (6.4-8.2)
[2017-11-21 08:00] VITALS: BP 132/77; PULSE 72; RESP 20; TEMP 98.2; O2SAT 96
[2017-11-21] MEDS: INSULIN ASPART SUPPLEMENTAL SCALE SQ SCH ×3 (08:00→17:00)
[2017-11-21] MEDS: LOSARTAN 50 MG TAB PO SCH (08:14)
[2017-11-21] MEDS: SODIUM CHLORIDE 0.9% FLUSH 10 ML FLUSH IV FLUSH SCH (08:14)
[2017-11-21] MEDS ORDERED: BISACODYL 10 MG SUPP RECTAL SCH (09:45)
--- NOTE | 2017-11-21 11:12 | HHI.FPPN ---
Subjective Remarks Patient feeling better today than when she came into hospital. She is complaining of a headache for the past 3 days that is not localized to one side or area of her head. She denies visual changes or a stiff neck. She also reporting that she has not had a BM since being admitted to the hospital. She is having crampy RUQ pain. She thinks this may be 2/2 constipation. She reports that her right sided flank pain has improved tremendously since coming into the hospital. She is urinating without difficulty and denies blood in her urine. She was evaluated by urology on 11/20/17, and they recommend outpt follow up of nephrolithiasis. Objective Vitals Vital Signs Date Time Temp Pulse Resp B/P (MAP) Pulse Ox O2 Delivery O2 Flow Rate FiO2 11/21/17 08:17 20 11/21/17 08:17 20 11/21/17 08:00 96 Room Air 11/21/17 08:00 98.2 72 20 132/77 (95) 96 11/21/17 04:00 97.8 61 20 128/75 (92) 97 11/21/17 04:00 66 11/21/17 00:00 65 11/21/17 00:00 97.9 68 22 125/70 (88) 95 11/20/17 20:55 Room Air 11/20/17 20:00 100.7 73 20 145/88 (107) 98 11/20/17 16:30 82 11/20/17 16:00 98.1 71 18 114/79 (91) 96 11/20/17 12:00 97.8 69 18 115/75 (88) 96 I/O 11/20/17 11/20/17 11/20/17 11/21/17 11/21/17 11/21/17 07:00 15:00 23:00 07:00 15:00 23:00 Intake Total 889 ml 1000 ml 1579 ml 999 ml Output Total 600 ml 900 ml 1100 ml Balance 289 ml 1000 ml 679 ml -101 ml Intake Oral 480 ml IV Total 889 ml 1000 ml 1099 ml 999 ml Output Urine Total 600 ml 900 ml 1100 ml # Bowel Movements 0 Result Diagram: 11/21/1752511/21/17 0526 Objective Remarks GENERAL: Patient appears uncomfortable but seems improved from the previous day SKIN: Warm and dry. No rash. EYES: No scleral icterus. No injection or drainage. PERRLA. EOMI. HENT: Normocephalic. Atraumatic. MMM. CARDIOVASCULAR: Warm and well perfused. Regular rate and rhythm RESPIRATORY: Normal respiratory effort but coughs with inspiration. Faint crackles at the right base. GASTROINTESTINAL: Abdomen nondistended but patient states is bigger than usual, tender to palpation over epigastric area with light guarding. CVA tenderness on the right side. MUSCULOSKELETAL: Strength grossly WNL. BACK: Without obvious deformity. NEURO/PSYCH: Afocal. Awake, alert, and oriented x3. A/P Assessment and Plan Mrs. Styles is a very pleasant 47-year-old female, with past medical history significant for essential hypertension, recurrent kidney stones, and hypothyroidism. She was admitted to the hospital meeting sepsis criteria, with a likely source being her urogenital tract. A CT scan done on admission showed perinephric streakiness and mild ureteropelvic atelectasis on the right, suggestive of obstructive uropathy. There were also multiple calcified nonobstructing bilateral renal calculi. Urology was consulted to assist with management. Discharge Planning D/c today 11/21/2017 if afebrile until evening. Problem List: (1) Pyelonephritis ICD Codes: N12 - Tubulo-interstitial nephritis, not specified as acute or chronic Status: Acute Plan: Patient met sepsis criteria on admission. Blood cultures ordered on 11/19/2017 negative Urine culture from 11/15/2017, showed Escherichia coli, sensitive to Rocephin and ciprofloxacin. Repeat cultures growing Escherichia coli sensitive to ciprofloxacin and Rocephin UA on admission showed large leukocyte esterase, 16 RBCs, occasional bacteria, and negative nitrates. PLAN: Tolerating PO intake, d/c IVF. Pain control with Lortab 5-325 mg q 6 hours PRN pain 1/5, Lortab 10-325 pain 6- 10, Dilaudid 0.5 mg IV for breakthrough q 3 hours. Pain is better controlled Switched back to Rocephin IV on 11/19/17. Discharge with Keflex 500 mg q 6 hrs x 7 more days for pyelonephritis. Consult Urology given significant history of recurrent kidney stones and likely infected calculi in the right kidney. Appreciate their assistance. Recommend outpatient follow up. (2) Hypertension ICD Codes: I10 - Essential (primary) hypertension Status: Acute Plan: Continue with home losartan 100 mg daily. Hold parameters in place. (3) Hypothyroidism ICD Codes: E03.9 - Hypothyroidism, unspecified Status: Acute Plan: Cont home levothyroxine. (4) TAY (acute kidney injury) ICD Codes: N17.9 - Acute kidney failure, unspecified Status: Resolved Plan: Resolved with IVF and antibiotic therapy. (5) Constipation ICD Codes: K59.00 - Constipation, unspecified Plan: -No bowel movements since admission -On constipation regimen - escalate as needed -Add prune juice to meals. -Trial Dulcolax suppository x 1. (6) Nutrition, metabolism, and development symptoms ICD Codes: R63.8 - Other symptoms and signs concerning food and fluid intake Plan: Diet: Reg diet Fluids: Above GI ppx: not indicated DVT ppx: Lovenox 40 mg daily OOB TID Respiratory incentive spirometer q1h to prevent pneumonia/atelectasis Duonebs prn for bronchospasm Fioricet prn for headaches PT to assist with strengthening exercises Johan Zepeda Dr., MD, R3 Nov 21, 2017 11:12
--- NOTE | 2017-11-21 11:13 | HHI.DS ---
Discharge Summary Admission Date Nov 17, 2017 at 20:43 Admitting Diagnosis Chest pain, pyelonephritis (failed outpatient treatment) (1) Pyelonephritis Plan: Patient met sepsis criteria on admission. Blood cultures ordered on 11/19/2017 negative Urine culture from 11/15/2017, showed Escherichia coli, sensitive to Rocephin and ciprofloxacin. Repeat cultures growing Escherichia coli sensitive to ciprofloxacin and Rocephin UA on admission showed large leukocyte esterase, 16 RBCs, occasional bacteria, and negative nitrates. PLAN: Tolerating PO intake, d/c IVF. Pain control with Lortab 5-325 mg q 6 hours PRN pain 1/5, Lortab 10-325 pain 6- 10, Dilaudid 0.5 mg IV for breakthrough q 3 hours. Pain is better controlled Switched back to Rocephin IV on 11/19/17. Discharge with Keflex 500 mg q 6 hrs x 7 more days for pyelonephritis. Consult Urology given significant history of recurrent kidney stones and likely infected calculi in the right kidney. Appreciate their assistance. Recommend outpatient follow up. ICD Codes: N12 - Tubulo-interstitial nephritis, not specified as acute or chronic Status: Acute (2) Hypertension Plan: Continue with home losartan 100 mg daily. Hold parameters in place. ICD Codes: I10 - Essential (primary) hypertension Status: Acute (3) Hypothyroidism Plan: Cont home levothyroxine. ICD Codes: E03.9 - Hypothyroidism, unspecified Status: Acute (4) TAY (acute kidney injury) Plan: Resolved with IVF and antibiotic therapy. ICD Codes: N17.9 - Acute kidney failure, unspecified Status: Resolved (5) Constipation Plan: -No bowel movements since admission -On constipation regimen - escalate as needed -Add prune juice to meals. -Trial Dulcolax suppository x 1. ICD Codes: K59.00 - Constipation, unspecified (6) Nutrition, metabolism, and development symptoms Plan: Diet: Reg diet Fluids: Above GI ppx: not indicated DVT ppx: Lovenox 40 mg daily OOB TID Respiratory incentive spirometer q1h to prevent pneumonia/atelectasis Duonebs prn for bronchospasm Fioricet prn for headaches PT to assist with strengthening exercises JADONW Prevatte ICD Codes: R63.8 - Other symptoms and signs concerning food and fluid intake CBC/BMP: 11/21/17 0526 11/21/17 0526 Significant Findings Laboratory Tests Test 11/19/17 06:58 11/19/17 07:38 11/20/17 05:03 11/21/17 05:26 Creatinine 1.11 MG/DL (0.50-1.00) Random Glucose 132 MG/DL (74-106) 134 MG/DL (74-106) Albumin 2.1 GM/DL (3.4-5.0) 2.1 GM/DL (3.4-5.0) 2.3 GM/DL (3.4-5.0) Calcium Level 8.0 MG/DL (8.5-10.1) 7.7 MG/DL (8.5-10.1) Estimat Glomerular Filtration Rate 53 ML/MIN (>89) 63 ML/MIN (>89) 62 ML/MIN (>89) Red Blood Count 3.52 MIL/MM3 (4.00-5.30) 3.57 MIL/MM3 (4.00-5.30) Hemoglobin 10.5 GM/DL (11.6-15.3) 10.8 GM/DL (11.6-15.3) Hematocrit 31.9 % (35.0-46.0) 31.8 % (35.0-46.0) Platelet Count 113 TH/MM3 (150-450) 135 TH/MM3 (150-450) Neutrophils (%) (Auto) 82.5 % (16.0-70.0) Lymphocytes # (Auto) 0.6 TH/MM3 (1.0-4.8) Aspartate Amino Transf (AST/SGOT) 54 U/L (15-37) 59 U/L (15-37) Carbon Dioxide Level 20.3 MEQ/L (21.0-32.0) Total Protein 8.3 GM/DL (6.4-8.2) PE at Discharge GENERAL: Patient appears uncomfortable but seems improved from the previous day SKIN: Warm and dry. No rash. EYES: No scleral icterus. No injection or drainage. PERRLA. EOMI. HENT: Normocephalic. Atraumatic. MMM. CARDIOVASCULAR: Warm and well perfused. Regular rate and rhythm RESPIRATORY: Normal respiratory effort but coughs with inspiration. Faint crackles at the right base. GASTROINTESTINAL: Abdomen nondistended but patient states is bigger than usual, tender to palpation over epigastric area with light guarding. CVA tenderness on the right side. MUSCULOSKELETAL: Strength grossly WNL. BACK: Without obvious deformity. NEURO/PSYCH: Afocal. Awake, alert, and oriented x3. Hospital Course Mrs. Styles is a very pleasant 47-year-old mainly Armenian-speaking female, with past medical history significant for recurrent kidney stones, hypertension and hypothyroidism, was admitted to the hospital for a chest pain rule out. Troponins were negative 3. She also was found to have a urinary tract infection, a CT of her abdomen revealed a dilated right ureteropelvic junction, consistent with the passing of a stone within the past 7 days. She was given 4 days of IV antibiotics, Rocephin. Urine cultures were pansensitive to the cephalosporins. She also had acute kidney injury, that resolved with IV fluids. She did well throughout her hospitalization, however developed constipation secondary to pain medications. She also was complaining of right upper quadrant pain on the day of discharge, however a CT scan of her abdomen and pelvis showed no acute pathology to describe this pain. Hepatitis serologies were also negative. She was ambulating with the assistance of physical therapy, and will be discharged home with 7 more days of by mouth Keflex. She should follow-up with urology, for recommendations on recurrent kidney stones. Pt Condition on Discharge: Stable Discharge Instructions New Medications: Cephalexin (Cephalexin) 500 Mg Cap 500 MG PO Q6HR, #28 CAP Hydrocodone/Acetaminophen (Hydrocodone-Acetamin 5-325 mg) 5 Mg-325 Mg Tablet 1 TAB PO Q4H PRN for PAIN 1-5, #20 TAB 0 Refills Sennosides (Senna-Lax) 8.6 Mg Tab 17.2 MG PO Q12H PRN for Moderate constipation, #30 TAB 1 Refill Continued Medications: Levothyroxine (Levothyroxine) 200 Mcg Tab 200 MCG PO DAILY for Thyroid, #90 TAB 3 Refills Losartan (Losartan) 100 Mg Tab 100 MG PO DAILY for Blood Pressure Management, #30 TAB 11 Refills Johan Coombs MD, R3 Nov 21, 2017 11:13
[2017-11-21] MEDS: CEPHALEXIN MONOHYDRATE 500 MG CAP PO SCH ×2 (11:22→17:17)
[2017-11-21] MEDS ORDERED: HYDR-3516 PO (11:39)
[2017-11-21] MEDS ORDERED: SENN187 PO (11:39)
[2017-11-21] MEDS ORDERED: CEPH500C PO (11:39)
[2017-11-21 12:00] VITALS: BP 109/59; PULSE 76; RESP 20; TEMP 98.1; O2SAT 97
[2017-11-21 16:00] VITALS: BP 144/82; PULSE 79; RESP 20; TEMP 98.7; O2SAT 97
--- NOTE | 2017-11-21 23:14 | EKG ---
Date Performed: 11/17/2017 Time Performed: 18:40:48 PTAGE: 47 years EKG: SINUS TACHYCARDIA INCOMPLETE RIGHT BUNDLE BRANCH BLOCK NONSPECIFIC T-WAVE ABNORMALITY ABNOR MAL RHYTHM ECG PREVIOUS TRACING : 04/27/2017 20.06 DOCTOR: Lucero Shane Interpretating Date/Time 11/21/2017 23:12:36
== END 2017-11-21 18:00 | disposition home or self-care (01) | DRG 872 ==
LOC: NEPC 16:39 → NEDA 20:43 → N04B 23:40
PROVIDERS: ADMIT Family Medicine; ATTEND Family Medicine
DX: A41.9 Sepsis, unspecified organism (principal); N17.9 Acute kidney failure, unspecified; N12 Tubulo-interstitial nephritis, not specified as acute or chronic; B96.20 Unspecified Escherichia coli [E. coli] as the cause of diseases classified elsewhere; R07.89 Other chest pain; R00.0 Tachycardia, unspecified; I10 Essential (primary) hypertension; E03.9 Hypothyroidism, unspecified; Z87.442 Personal history of urinary calculi; K59.00 Constipation, unspecified; H91.8X2 Other specified hearing loss, left ear; Z87.891 Personal history of nicotine dependence; Z82.49 Family history of ischemic heart disease and other diseases of the circulatory system
CPT/HCPCS: 71046; 74176; 80048; 80053; 80074; 80076; 81001; 82550; 82948; 83690; 84484; 85025; 85027; 87040; 87077; 87086; 87186; 93005; 94150; 96365; 96375; 99284; J0696; J0744; J1650; J1815; J1885; J2270; J2405; J7030